=== PATIENT | female | born 1965 | race Caucasian/White ===

== ENCOUNTER 2016-05-05 20:00 | Emergency (ER) | payer MEDICAID, OTHER ==
[~2016-05-05] VITALS: Ht 152.4 cm; Wt 97.5 kg
[~2016-05-05 20:00] MED LIST: HYDR-3498 PO; HYDR-762 PO; Toradol PO
[2016-05-05 20:07] VITALS: Ht 152.4 cm; Wt 97.5 kg
[2016-05-05] MEDS ORDERED: SOD CHLORIDE 0.9% 1,000 ML IV STA (20:48)
[2016-05-05] MEDS ORDERED: morphine 4 MG/ML VIAL IV STA (20:48)
[2016-05-05] MEDS ORDERED: ONDANSETRON 4 MG INJ IV STA (20:48)
[2016-05-05 21:12] LABS: ADD SCAN DIFF NO
[2016-05-05 21:19] LABS: BASOPHILS % 0.5 % (0.0-2.0); EOSINOPHILS # 0.1 10^3/ul (0.0-0.5); EOSINOPHILS % 2.3 % (0.0-7.0); HEMATOCRIT 36.9 % (37.0-47.0); HEMOGLOBIN 12.6 g/dl (12.0-16.0); LYMPHOCYTES % 35.7 % (15.0-51.0); MEAN CORPUSCULAR HEMOGLOBIN 30.7 pg (29.0-33.0); MEAN CORPUSCULAR HGB CONC 34.1 g/dl (32.0-37.0); MEAN CORPUSCULAR VOLUME 89.8 fl (82.0-101.0); MEAN PLATELET VOLUME 11.4 fl (7.4-10.4); MONOCYTE # 0.4 10^3/ul (0.3-0.9); MONOCYTES % 6.7 % (0.0-11.0); NEUTROPHIL # 3.1 10^3/ul (1.6-7.5); NEUTROPHILS % 54.6 % (39.0-77.0); PLATELET COUNT 217 10^3/UL (140-415); RED BLOOD COUNT 4.11 10^6/ul (4.20-5.40); RED CELL DISTRIBUTION WIDTH 12.9 % (11.5-14.5); WHITE BLOOD COUNT 5.7 10^3/ul (4.8-10.8)
[2016-05-05 21:20] LABS: ADD UMIC YES; URINE BILIRUBIN (Dip) NEGATIVE (NEGATIVE); URINE BLOOD (Dip) 1+ (NEGATIVE); URINE COLOR LT. YELLOW (YELLOW); URINE GLUCOSE (Dip) NEGATIVE (NEGATIVE); URINE KETONES (Dip) NEGATIVE (NEGATIVE); URINE LEUKOCYTE ESTERASE (Dip) NEGATIVE (NEGATIVE); URINE NITRITE (Dip) NEGATIVE (NEGATIVE); URINE TOTAL PROTEIN (Dip) NEGATIVE (NEGATIVE); URINE UROBILINOGEN (Dip) 0.2 E.U./dL (0.1-1.0)
--- NOTE | 2016-05-05 21:26 | ERD ---
ER Documentation Chief Complaint Date/Time DATE: 05/05/16 TIME: 21:22 Chief Complaint Left Flank pain. Bilateral leg swelling and pain. HPI Patient is a 50-year-old female with whom we have to communicate through the office manager executive assistant phone. She reports left great toe pain for about a week that has not improved. She also reports left lower extremity swelling and pain for an unknown period of time. She is also complaining of left flank pain also for an unknown period of time. She does not have any abdominal pain, nausea, vomiting , diarrhea, dysuria, or hematuria. She denies any trauma to the flank, lower extremity, or toe. She denies any chest pain, shortness of breath, hemoptysis, fever, coughing, congestion, rhinorrhea, sore throat, or otalgia, headache, vertigo, paresthesias, focal weakness. Nothing seems to make any of the symptoms better or worse. In the remainder of the systems are negative. ROS All systems reviewed and are negative except as per history of present illness. Medications Home Meds Active Scripts Hydrocodone Bit-Acetaminophen* ([place]*) 10-325 Mg Tablet, 1 TAB PO Q4H Y for PAIN, #12 TAB Prov:DEEPIKA LOPEZ MD 07/16/15 [Toradol] No Conflict Check, 10 MG PO Q8H Y for PAIN, #10 Prov:DEEPIKA LOPEZ MD 07/16/15 Hydrocodone Bit-Acetaminophen* ([place]*) 5-325 Mg Tab, 1 TAB PO BID Y for PAIN, # 10 TAB 0 Refills Prov:RADHA MATTHEWS PA-C 07/15/15 Allergies Allergies: Coded Allergies: No Known Allergy (Unverified , 07/15/15) PMhx/Soc Medical and Surgical Hx: pt denies Medical Hx History of Surgery: Yes (DNCs) Anesthesia Reaction: No Hx Neurological Disorder: No Hx Respiratory Disorders: No Hx Cardiac Disorders: Yes (HTN HYPERLIPIDS, HYPERTRIGLYCERIDES) Hx Psychiatric Problems: No Hx Miscellaneous Medical Probl: No Hx Alcohol Use: No Hx Substance Use: No Hx Tobacco Use: No Smoking Status: Never smoker Physical Exam Vitals Vital Signs Date Time Temp Pulse Resp B/P Pulse Ox O2 Delivery O2 Flow Rate FiO2 05/05/16 20:07 97.5 81 20 132/78 99 Physical Exam Const: [] Well-developed well-nourished female lying on the bed no acute distress Head: Atraumatic normocephalic Eyes: Normal Conjunctiva ENT: Normal External Ears, Nose and Mouth. Neck: Full range of motion..~ No meningismus. Resp: Clear to auscultation bilaterally Cardio: Regular rate and rhythm, no murmurs Abd: Soft, non tender, non distended. Normal bowel sounds no masses, rebound , or guarding Skin: No petechiae or rashes Back: No midline tenderness to palpation, mild left flank pain on palpation Ext: No cyanosis, or edema, patient reports mild tenderness to palpation diffusely the left lower extremity with no objective findings noted, patient has a small paronychia noted of her left great toe Neur: Awake and alert oriented 3, GCS of 15, moves all extremities equally, grossly nonfocal Psych: Normal Mood and Affect Result Diagram: 05/05/16205605/05/162056 Results 24 hrs Laboratory Tests Test 05/05/16 20:57 Alanine Aminotransferase (ALT/SGPT) 36IU/L Albumin 3.9g/dl Albumin/Globulin Ratio 1.34 Alkaline Phosphatase 72IU/L Anion Gap 15 Aspartate Amino Transf (AST/SGOT) 21IU/L Basophils # 0.010^3/ul Basophils % 0.5% Blood Urea Nitrogen 15mg/dl Calcium Level 8.9mg/dl Carbon Dioxide Level 27mmol/L Chloride Level 103mmol/L Creatinine 0.68mg/dl Direct Bilirubin 0.00mg/dl Eosinophils # 0.110^3/ul Eosinophils % 2.3% Globulin 2.90g/dl Glucose Level 152mg/dl Hematocrit 36.9% Hemoglobin 12.6g/dl Indirect Bilirubin 0.0mg/dl Lipase 219U/L Lymphocytes # 2.010^3/ul Lymphocytes % 35.7% Mean Corpuscular Hemoglobin 30.7pg Mean Corpuscular Hemoglobin Concent 34.1g/dl Mean Corpuscular Volume 89.8fl Mean Platelet Volume 11.4fl Monocytes # 0.410^3/ul Monocytes % 6.7% Neutrophils # 3.110^3/ul Neutrophils % 54.6% Nucleated Red Blood Cells # 0.010^3/ul Nucleated Red Blood Cells % 0.0/100WBC Platelet Count 77615^3/UL Potassium Level 3.7mmol/L Red Blood Count 4.1110^6/ul Red Cell Distribution Width 12.9% Sodium Level 141mmol/L Total Bilirubin 0.0mg/dl Total Protein 6.8g/dl Urine Bilirubin NEGATIVE Urine Clarity CLEAR Urine Color LT. YELLOW Urine Glucose NEGATIVE% Urine Hemoglobin 1+ Urine Ketones NEGATIVE Urine Leukocyte Esterase NEGATIVE Urine Microscopic RBC 0-2/HPF Urine Microscopic WBC 0-2/HPF Urine Nitrite NEGATIVE Urine Specific [place] 1.015 Urine Squamous Epithelial Cells FEW Urine Total Protein NEGATIVE Urine Urobilinogen 0.2 E.U./dL Urine pH 5.5 White Blood Count 5.710^3/ul Current Medications Medications (Trade) Dose Ordered Sig/Sascha Route PRN Reason Start Time Stop Time Status Last Admin Dose Admin Sodium Chloride (NS) 1,000 ml @ 1,000 mls/hr Q1H STAT IV 05/05/16 20:48 05/05/16 21:47 DC 05/05/16 21:20 Morphine Sulfate (morphine) 4 mg ONCE STAT IV 05/05/16 20:48 05/05/16 20:51 DC 05/05/16 21:20 Ondansetron HCl (Zofran Inj) 4 mg ONCE STAT IV 05/05/16 20:48 05/05/16 20:51 DC 05/05/16 21:19 Procedures/MDM Differential includes but is not limited to paronychia of the left great toe, left lower extremity pain of unknown etiology, DVT, left flank pain of unknown etiology, musculoskeletal pain, pyelonephritis, ureterolithiasis, urinary tract infection CAT scan of the abdomen and pelvis do not reveal any acute intra-abdominal findings per the radiologist Doppler ultrasound of both lower extremities do not reveal any DVTs or other findings per the radiologist 2250: Patient has no change in her exam. She is stable for discharge home. I do not have a cause for her bilateral lower extremity pain. She states she is swollen however objectively I do not find any swelling on her exam. I also do not have a cause for her left flank pain. It may be musculoskeletal in origin. I will treat her for her pain. I have advised her and her daughter to follow- up with primary care physician next week. Departure Diagnosis: Primary Impression: Paronychia of great toe of left foot Additional Impressions: Lt flank pain Leg pain, bilateral Condition: Stable Patient Instructions: Flank Pain, Uncertain Cause, Paronychia, Possible Causes of Low Back or Leg Pain Additional Instructions: Take your medications as prescribed and please schedule a follow-up appointment with your primary care physician. I have referred you to podiatry for further treatment of your ingrown toenail. Return to the emergency department for any new or worsening symptoms. NARINDER GONZALEZ May 05, 2016 21:26
[2016-05-05 21:30] LABS: ALBUMIN 3.9 g/dl (3.3-4.9)
[2016-05-05 21:31] LABS: POTASSIUM 3.7 mmol/L (3.5-5.1)
[2016-05-05 21:33] LABS: ALBUMIN/GLOBULIN RATIO 1.34; CREATININE 0.68 mg/dl (0.44-1.00); TOTAL PROTEIN 6.8 g/dl (6.1-8.1)
[2016-05-05 21:34] LABS: CALCIUM 8.9 mg/dl (8.4-10.2)
[2016-05-05 21:38] LABS: SQUAMOUS EPITHELIAL CELL,UR FEW; URINE RBCS 0-2 /HPF (0)
--- NOTE | 2016-05-05 22:34 | RADRPT ---
PROCEDURE: CT ABDOMEN/PELVIS WITHOUT CONTRAST CLINICAL INDICATION: 50-year-old female with left flank pain. TECHNIQUE: The study was performed utilizing a [employer] VCT 64-slice CT scanner. Direct axia l sections were obtained through the abdomen and pelvis without the use of intravenous contrast mate rial. Sagittal and coronal reformations were obtained. One or more of the following dose reduction t echniques were utilized: automated exposure control, adjustment of the mA and/or kV according to pat ient's size or use of iterative reconstruction technique. The images were reviewed on a PACS workst atdineout. CTD/vol = 23.2 mGy; Total Exam DLP = 1433.6 mGy-cm. COMPARISON: CT abdomen/pelvis July 15, 2015. FINDINGS: The lung bases are unremarkable. There is no evidence for significant pleural effusion. The liver has a normal size and contour without focal areas of abnormal density. No intrahepatic nor extrahepa tic biliary ductal dilatation is seen. The gallbladder demonstrates no wall thickening nor perichole cystic fluid. No biliary stones are evident. The pancreas is without areas of abnormal attenuation. The spleen is identified and has a normal size without abnormal density. The adrenal glands are unr emarkable. The kidneys are without abnormal density. No hydroureteronephrosis nor nephroureterolithi asis is evident. The urinary bladder contains urine. There is fecalization of the terminal ileum wit h mild retained stool within the ascending colon without gross bowel show inflammatory changes. The re is minimal central mesenteric infiltration with shotty mesenteric lymph nodes without significant interval change. The uterus is not visualized consistent with prior hysterectomy. Phleboliths are identified within the pelvis. There is no significant free fluid. The aortoiliac vessels are wi thout aneurysmal dilatation. The osseous structures are intact. IMPRESSION: 1. No CT evidence for obstructive uropathy or renal calculi. 2. Fecalization of the terminal ileum with mild retained stool within the ascending colon without o bstruction. 3. Nonspecific minimal central mesenteric infiltration with shotty mesenteric lymph nodes without i nterval change. 4. Status post hysterectomy. .Zheng Monzon MD, MD Date Time Electronically viewed and signed by .Zheng Monzon MD, on 05/05/2016 22:34 .Polly
--- NOTE | 2016-05-05 22:48 | RADRPT ---
PROCEDURE: US bilateral lower extremity venous Doppler CLINICAL INDICATION: Bilateral swelling TECHNIQUE: Multiple sonographic images of the bilateral lower extremity deep venous system was obt ained utilizing grayscale, color-flow, compressive sonography and Doppler imaging with augmentation. COMPARISON: There are no similar studies submitted for comparison. FINDINGS: There is normal compressibility and flow within the bilateral common femoral, superficial femoral, p opliteal, and calf veins. IMPRESSION: No evidence of DVT within the lower extremities. RPTAT: HIKT .Joshua Benson MD, MD Date Time Electronically viewed and signed by .Joshua Benson MD, MD on 05/05/2016 22:48 .T/
[2016-05-05] MEDS ORDERED: CIPR500T4 PO (22:59)
[2016-05-05] MEDS ORDERED: TRAM50TA2 PO (23:00)
[2016-05-05] MEDS ORDERED: ONDA4TAB8 PO (23:00)
[2016-05-05] MEDS ORDERED: ETOD300C26 PO (23:01)
[2016-05-05 23:42] VITALS: BP 127/68; PULSE 88; RESP 20; TEMP 98.2
== END 2016-05-05 23:42 | disposition home or self-care (01) ==
LOC: E/R 20:00
DX: L03.032 Cellulitis of left toe (principal); R10.9 Unspecified abdominal pain; M79.605 Pain in left leg; M79.604 Pain in right leg; I10 Essential (primary) hypertension
CPT/HCPCS: 36415; 74176; 80053; 81001; 83690; 85025; 93970; 96374; 96375; J2270; J2405; J7030; Z7502; 81003

== ENCOUNTER 2017-08-21 17:52 | Emergency (ER) | END 2017-08-21 21:37 | disposition home or self-care (01) ==

== ENCOUNTER 2017-11-03 19:52 | Emergency (ER) | END 2017-11-03 23:34 | disposition home or self-care (01) ==

== ENCOUNTER 2018-06-01 12:19 | Emergency (ER) | payer BC ==
[~2018-06-01] VITALS: Ht 157.5 cm; Wt 99.3 kg
[~2018-06-01 12:19] MED LIST changes: +CIPR500T4 PO; +DICY10CA40 PO; +DOCU-144 PO; +ETOD300C33 PO; +FAMO-96 PO; +HYDR-4011 PO; +NAPR-985 PO; +ONDA4TAB8 PO; +TRAM50TA2 PO
[2018-06-01 12:24] VITALS: RESP 20; Ht 157.5 cm; Wt 99.3 kg
[2018-06-01] MEDS ORDERED: ACETAMINOPHEN 325 MG TAB PO ONE (14:30)
[2018-06-01] MEDS ORDERED: IBUP-1561 PO (16:22)
[2018-06-01] MEDS ORDERED: ACET-141 PO (16:22)
--- NOTE | 2018-06-01 16:28 | ERD ---
ER Documentation Chief Complaint Chief Complaint LOW BACK RAD TO LT LEG PAIN,MID BACK/BILAT SHOULDER PAIN [id number] RAD CHEST ROS All systems reviewed and are negative except as per history of present illness. Medications Home Meds Active Scripts Ibuprofen* (Motrin*) 400 Mg Tab, 400 MG PO Q6H PRN for PAIN AND OR ELEVATED TEMP, #30 TAB Prov:JOSE LUIS JAMES DO 06/01/18 Acetaminophen* (Acetaminophen*) 500 MG Extra Strength Tablet, 500 MG PO Q4H PRN for PAIN AND OR ELEVATED TEMP, #30 TAB Prov:JOSE LUIS JAMES 06/01/18 Tramadol HCl (Tramadol HCl) 50 Mg Tablet, 50 MG PO Q4 PRN for PAIN, #20 TAB Prov:LUCRETIA LIVE PA-C 11/03/17 Docusate Sodium* (Colace*) 100 Mg Capsule, 100 MG PO DAILY PRN for constipation, #30 CAP Prov:BEST COSTA 08/21/17 Famotidine* (Pepcid*) 20 Mg Tablet, 20 MG PO DAILY for 30 Days, TAB Prov:BEST COSTA 08/21/17 Hydrocodone/Acetaminophen ([place] 5-325 Tablet) 1 Each Tablet, 1 TAB PO Q6H PRN for SEVERE PAIN LEVEL 7-10, #20 TAB Prov:BETS COSTA 08/21/17 Naproxen* (Naprosyn*) 500 Mg Tablet, 500 MG PO BID PRN for PAIN AND/OR INFLAMMATION, #30 TAB Prov:BEST COSTA 08/21/17 Dicyclomine HCl (Dicyclomine HCl) 10 Mg Capsule, 1 CAP PO Q8 PRN for abdominal pain, #20 Prov:BEST COSTA 08/21/17 Etodolac (Etodolac) 300 Mg Capsule, 300 MG PO Q8 PRN for PAIN, #30 CAP 0 Refills Prov:NARINDER GONZALEZ 05/05/16 Ondansetron Hcl* (Zofran*) 4 Mg Tablet, 4 MG PO Q8H PRN for NAUSEA AND/OR VOMITING, #20 TAB 0 Refills Prov:NARINDER GONZALEZ 05/05/16 Tramadol HCl (Tramadol HCl) 50 Mg Tablet, 50 MG PO Q6, #20 TAB 0 Refills Prov:NARINDER GONZALEZ 05/05/16 Ciprofloxacin Hcl* (Ciprofloxacin Hcl*) 500 Mg Tablet, 500 MG PO BID for 10 Days, TAB 0 Refills Prov:NARINDER GONZALEZ 05/05/16 Hydrocodone Bit-Acetaminophen* ([place]*) 10-325 Mg Tablet, 1 TAB PO Q4H PRN for PAIN, #12 TAB Prov:DEEPIKA LOPEZ MD 07/16/15 [Toradol] No Conflict Check, 10 MG PO Q8H PRN for PAIN, #10 Prov:DEEPIKA LOPEZ MD 07/16/15 Hydrocodone Bit-Acetaminophen* ([place]*) 5-325 Mg Tab, 1 TAB PO BID PRN for PAIN, #10 TAB 0 Refills Prov:RADHA MATTHEWS PA-C 07/15/15 Allergies Allergies: Coded Allergies: No Known Allergy (Unverified , 06/01/18) PMhx/Soc History of Surgery: Yes (DNCs) Anesthesia Reaction: No Hx Neurological Disorder: No Hx Respiratory Disorders: No Hx Cardiac Disorders: Yes (HTN HYPERLIPIDS, HYPERTRIGLYCERIDES) Hx Psychiatric Problems: No Hx Miscellaneous Medical Probl: No Hx Alcohol Use: No Hx Substance Use: No Hx Tobacco Use: No Smoking Status: Never smoker Physical Exam Vitals Vital Signs Date Temp Pulse Resp B/P (MAP) Pulse Ox O2 O2 Flow FiO2 Time Delivery Rate 06/01/18 97.7 76 20 151/74 99 12:24 (99) Physical Exam Const: No acute distress Head: Atraumatic Eyes: Normal Conjunctiva ENT: Normal External Ears, Nose and Mouth. Neck: Full range of motion. No meningismus. Resp: Clear to auscultation bilaterally Cardio: Regular rate and rhythm, no murmurs Abd: Soft, non tender, non distended. Normal bowel sounds Skin: No petechiae or rashes Back: No midline or flank tenderness Ext: No cyanosis, or edema Neur: Awake and alert Psych: Normal Mood and Affect Results 24 hrs Current Medications Medications Dose Sig/Sascha Start Time Status Last (Trade) Ordered Route PRN Stop Time Admin Dose Reason Admin 650 mg ONCE ONCE 06/01/18 DC 06/01/18 Acetaminophen PO 14:30 14:21 (Tylenol 06/01/18 14:31 Tab) Departure Diagnosis: Primary Impression: Back pain Back pain location: thoracic back pain Chronicity: unspecified Back pain laterality: unspecified Qualified Codes: M54.6 - Pain in thoracic spine Additional Impression: Shoulder pain Chronicity: acute Laterality: right Qualified Codes: M25.511 - Pain in right shoulder Condition: Fair Patient Instructions: Back Pain W/ Sciatica, Shoulder Pain (Uncertain Cause) Additional Instructions: Call your primary care doctor TOMORROW for an appointment during the next 1-2 days.See the doctor sooner or return here if your condition worsens before your appointment time. JOSE LUIS JAMES DO Jun 01, 2018 16:28
[2018-06-01 16:46] VITALS: BP 139/80; PULSE 56
== END 2018-06-01 16:47 | disposition home or self-care (01) ==
LOC: FTE 12:19
DX: M54.6 Pain in thoracic spine (principal); I10 Essential (primary) hypertension; M25.511 Pain in right shoulder
CPT/HCPCS: 72072; 73030; 93005; Z7502; Z7610

== ENCOUNTER 2018-09-12 21:28 | Emergency (ER) | payer SELFPAY ==
[~2018-09-12] VITALS: Ht 157.5 cm; Wt 95.5 kg
[~2018-09-12 21:28] MED LIST changes: +ACET-141 PO; +IBUP-1561 PO
[2018-09-12 21:33] VITALS: BP 134/78; PULSE 80; RESP 18; Ht 157.5 cm; Wt 95.5 kg
== END 2018-09-13 00:23 | disposition left against medical advice (07) ==
LOC: E/R 21:28
DX: Z53.21 Procedure and treatment not carried out due to patient leaving prior to being seen by health care provider (principal)

== ENCOUNTER 2018-10-26 08:44 | Emergency (ER) | payer BC ==
[~2018-10-26] VITALS: Ht 162.6 cm; Wt 96.3 kg
[~2018-10-26 08:44] MED LIST changes: +IBUP-1542 PO; +ONDA4TAB14 PO
[2018-10-26 08:45] VITALS: Ht 162.6 cm; Wt 96.3 kg
[2018-10-26] MEDS ORDERED: ONDANSETRON 4 MG INJ IV STA (09:06)
[2018-10-26] MEDS ORDERED: SOD CHLORIDE 0.9% 1,000 ML IV STA (09:06)
[2018-10-26] MEDS ORDERED: morphine 4 MG/ML VIAL IV STA (09:14)
[2018-10-26 10:44] VITALS: BP 120/67; PULSE 80; RESP 20
== END 2018-10-26 10:56 | disposition home or self-care (01) ==
LOC: E/R 08:44
DX: K80.20 Calculus of gallbladder without cholecystitis without obstruction (principal); I10 Essential (primary) hypertension
CPT/HCPCS: 36415; 76705; 80053; 81001; 83690; 85025; 96374; 96375; J2270; J2405; J7030; Z7502; Z7610

== ENCOUNTER 2018-11-05 20:19 | Emergency (ER) | payer BC ==
[~2018-11-05] VITALS: Ht 162.6 cm; Wt 95.7 kg
[~2018-11-05 20:19] MED LIST changes: +ACET500C5 PO; +HYDR-3980 PO; +IBUP800T48 PO; +NALO4SPR NS
[2018-11-05 20:58] VITALS: Ht 162.6 cm; Wt 95.7 kg
[2018-11-05] MEDS ORDERED: morphine 4 MG/ML VIAL IV STA (21:33)
[2018-11-05] MEDS ORDERED: SOD CHLORIDE 0.9% 1,000 ML IV STA (21:33)
[2018-11-05] MEDS ORDERED: ONDANSETRON 4 MG INJ IV STA (21:33)
[2018-11-05 23:28] VITALS: BP 119/82; PULSE 55; RESP 16
== END 2018-11-05 23:39 | disposition home or self-care (01) ==
LOC: E/R 20:19
DX: K80.20 Calculus of gallbladder without cholecystitis without obstruction (principal); I10 Essential (primary) hypertension
CPT/HCPCS: 36415; 76705; 80053; 83690; 84703; 85025; 96374; 96375; J2270; J2405; J7030; Z7502